=== PATIENT | male | born 1950 | race Caucasian/White ===

== ENCOUNTER 2019-04-03 15:37 | Emergency (ER) | payer MEDICARE, OTHER ==
--- NOTE | 2019-04-03 16:44 | ED Physician Documentation ---
PD HPI OPHTHO - Stated complaint Stated Complaint: LFT EYE INJURY - Chief complaint Chief Complaint: Heent - History obtained from History obtained from: Patient - History of Present Illness Timing - onset: Today Timing - details: Abrupt onset Location: Left Quality / character: Other (eye hurting and some blurred vision) Associated symptoms: FB sensation, Decreased vision. No: Double vision Contributing factors: Blunt trauma (he was riding tractor and a small tree/branch bent over and released and thwacked him in the left periorbital/orbital area. Has feeling of pain in eye and some blurred vision. Tried to call his Electronics Teacher and given appt for tomorrow morning. Encouraged to get checked in ER.), Wears glasses (just for reading, does not have them on usually.). No: Wears contacts Similar symptoms before: Has not had sx before Recently seen: Not recently seen Review of Systems Eyes: reports: Decreased vision Neurologic: denies: Focal weakness, Numbness, Altered mental status, Headache, LOC PD PAST MEDICAL HISTORY - Past Medical History Cardiovascular: None Respiratory: None GI: Ulcers : Kidney stones Musculoskeletal: Rheumatoid arthritis - Past Surgical History Past Surgical History: Yes Ortho: Rotator cuff repair - Present Medications Home Medications: Ambulatory Orders Medication Instructions Recorded Confirmed Omeprazole 20 mg PO DAILY 07/15/14 07/15/14 Ondansetron Odt [Zofran] 4 mg TL Q6H PRN #10 tablet 07/15/14 Oxycodone HCl/Acetaminophen 1 each PO Q4HR PRN #20 tablet 07/15/14 [Percocet 5-325 mg Tablet] Piroxicam 0 mg PO DAILY 07/15/14 07/15/14 Tamsulosin [Flomax] 0.4 mg PO DAILY #5 capsule 07/15/14 Erythromycin Base [Erythromycin 1 applic OP QID #3.5 oint...g. 04/03/19 Ophthalmic Ointment] Meloxicam [Mobic] 7.5 mg PO DAILY 04/03/19 04/03/19 - Allergies Allergies/Adverse Reactions: Allergies Allergy/AdvReac Type Severity Reaction Status Date / Time caffeine Allergy Unknown Verified 04/03/19 15:45 codeine Allergy Unknown Verified 04/03/19 15:45 - Social History Does the pt smoke?: No Smoking Status: Never smoker Does the pt drink ETOH?: Yes Does the pt have substance abuse?: No PD ED PE NORMAL - Vitals Vital signs reviewed: Yes - General General: Alert and oriented X 3, Well developed/nourished, Other (seems uncomfortable, and this is improved with Alcaine. ) - HEENT HEENT: PERRL, EOMI (without pain nor diplopia), Other (some bruising noted lower lid. No lacerations of skin. ) - Neck Neck: Supple, no meningeal sign, No bony TTP PD ED PE EXPANDED - Eyes Eyes: Eyelid erythema (with some mild bruising lower lid), Injected conj/sclera, Corneal abrasion (central), Fluorescein uptake, Anterior chambers clear, Normal fundi. No: Conj/sclera FB, Papilledema Results - Vitals Vitals: Vital Signs - 24 hr 04/03/19 04/03/19 15:42 17:34 Temperature 36.6 C Heart Rate 59 L 58 L Respiratory 14 13 Rate Blood Pressure 177/93 H 142/85 H O2 Saturation 99 96 Oxygen O2 Source Room air PD MEDICAL DECISION MAKING - ED course Complexity details: considered differential (corneal abrasion. Chambers without bleeding. No signs of globe rupture. ), d/w patient Departure - Departure Disposition: 01 Home, Self Care Clinical Impression: Corneal abrasion Qualifiers: Encounter type: initial encounter Laterality: left Qualified Code(s): S05.02XA - Injury of conjunctiva and corneal abrasion without foreign body, left eye, initial encounter Condition: Stable Record reviewed to determine appropriate education?: Yes Instructions: ED Eye Injury Corneal Abrasion Follow-Up: Todd Lagos MD [Primary Care Provider] - Prescriptions: Erythromycin Base [Erythromycin Ophthalmic Ointment] 1 applic OP QID #3.5 oint...g. Comments: Use the erythromycin ointment every 3-4 hours while awake. This will reduce the chance of infection. It also help soothe the abrasion and reduce symptoms. Tylenol or ibuprofen if needed for pain. Follow-up with your entry specialist tomorrow as planned. I just see the corneal abrasion without any other injury. Discharge Date/Time: 04/03/19 17:34
[2019-04-03] MEDS ORDERED: ERYTHROMYCIN OPHTH OINT 1 GM TUBE RIGHTEYE STA (17:19)
[2019-04-03 17:35] VITALS: BP 142/85
== END 2019-04-03 17:34 | disposition home or self-care (01) ==
LOC: ED 15:37
DX: S05.02XA Injury of conjunctiva and corneal abrasion without foreign body, left eye, initial encounter (principal); W22.8XXA Striking against or struck by other objects, initial encounter; Y93.89 Activity, other specified
CPT/HCPCS: 99283; J3490

== ENCOUNTER 2019-09-11 23:26 | Outpatient (CLI) | payer MEDICARE, OTHER | END 2019-09-11 23:27 | disposition critical access hospital (66) | LOC: EMS 23:26 | PROVIDERS: ATTEND Surgery | DX: R55 Syncope and collapse (principal); R42 Dizziness and giddiness; R41.0 Disorientation, unspecified | CPT/HCPCS: A0425; A0427 ==

== ENCOUNTER 2019-09-12 00:01 | Emergency (ER) | payer MEDICARE, OTHER ==
[2019-09-12] MEDS ORDERED: SODIUM CHLORIDE 0.9% 1,000 ML IV ONE (00:47)
[2019-09-12] MEDS ORDERED: DEXAMETHASONE 10 MG/ML VIAL IVP STA (00:47)
[2019-09-12] MEDS ORDERED: MAGNESIUM SULFATE 2 GRAM 2 GM/50 ML BAG IV ONE (00:48)
[2019-09-12] MEDS ORDERED: cefTRIAXone 1 GM in SODIUM CHLORIDE 0.9% MINIBAG 100 ML IV STA (00:48)
[2019-09-12 00:54] LABS: BASOPHILS # (AUTO) 0.1 10^3/uL (0.0-0.1); BASOPHILS % (AUTO) 0.7 %; EOSINOPHILS # (AUTO) 0.1 10^3/uL (0.0-0.7); EOSINOPHILS % (AUTO) 1.1 %; HGB - HEMOGLOBIN 11.1 g/dL (14.0-18.0); LYMPHOCYTES # (AUTO) 1.5 10^3/uL (1.5-3.5); LYMPHOCYTES % (AUTO) 20.3 %; MEAN CORPUSCULAR HEMOGLOBIN 24.7 pg (27.0-31.0); MEAN CORPUSCULAR VOLUME 79.6 fL (80.0-94.0); MEAN PLATELET VOLUME 10.8 fL (7.4-11.4); MONOCYTES # (AUTO) 0.5 10^3/uL (0.0-1.0); MONOCYTES % (AUTO) 6.3 %; NEUTROPHILS # (AUTO) 5.2 10^3/uL (1.5-6.6); NEUTROPHILS % (AUTO) 71.3 %; PLT - PLATELET COUNT 231 10^3/uL (130-450); RED CELL DISTRIBUTION WIDTH 14.1 % (12.0-15.0); WHITE BLOOD COUNT 7.3 x10^3/uL (4.8-10.8)
--- NOTE | 2019-09-12 00:55 | ED Physician Documentation ---
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 He has had some popping in his left ear and he has not had fever. 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 He has had dysrhythmia associated with pericarditis. Over the past 3 days he has had some improvement in his symptoms and today he went on a long walk with the dogs as usual and has felt fatigued. Tonight he had been laying in bed he went to the top of the stairs to ask his to call the dog and she heard a thud. He was on the landing with carpeted floor and he was not making sense. She states that he had repetitive amnesia and was diaphoretic. Review of Systems Constitutional: reports: Myalgias, Fatigue. denies: Fever Eyes: denies: Decreased vision Ears: reports: Ear pain, Tinnitus/ringing Nose: reports: Rhinorrhea / runny nose, Congestion Throat: reports: Sore throat Cardiac: denies: Chest pain / pressure, Palpitations Respiratory: reports: Cough. denies: Dyspnea GI: denies: Abdominal Pain, Nausea, Vomiting, Constipation, Diarrhea : denies: Dysuria, Frequency Skin: denies: Rash Musculoskeletal: denies: Neck pain, Back pain, Extremity pain Neurologic: reports: Syncope, Confused, LOC. denies: Generalized weakness, Focal weakness, Numbness, Headache PD PAST MEDICAL HISTORY - Past Medical History Cardiovascular: None Respiratory: None GI: Ulcers : Kidney stones Musculoskeletal: Rheumatoid arthritis - Past Surgical History Past Surgical History: Yes Ortho: Rotator cuff repair - Present Medications Home Medications: Ambulatory Orders Medication Instructions Recorded Confirmed Omeprazole 20 mg PO DAILY 07/15/14 07/15/14 Ondansetron Odt [Zofran] 4 mg TL Q6H PRN #10 tablet 07/15/14 Oxycodone HCl/Acetaminophen 1 each PO Q4HR PRN #20 tablet 07/15/14 [Percocet 5-325 mg Tablet] Piroxicam 0 mg PO DAILY 07/15/14 07/15/14 Tamsulosin [Flomax] 0.4 mg PO DAILY #5 capsule 07/15/14 Erythromycin Base [Erythromycin 1 applic OP QID #3.5 oint...g. 04/03/19 Ophthalmic Ointment] Meloxicam [Mobic] 7.5 mg PO DAILY 04/03/19 04/03/19 Amox/Clav 875/125 [Augmentin] 1 each PO Q12H #20 tablet 09/12/19 - Allergies Allergies/Adverse Reactions: Allergies Allergy/AdvReac Type Severity Reaction Status Date / Time caffeine Allergy Unknown Verified 09/12/19 00:09 codeine Allergy Unknown Verified 09/12/19 00:09 - Social History Does the pt smoke?: No Smoking Status: Never smoker Does the pt drink ETOH?: Yes Does the pt have substance abuse?: No PD ED PE NORMAL - Vitals Vital signs reviewed: Yes (hypertensive mild ) - General General: Alert and oriented X 3, No acute distress, Well developed/nourished - HEENT HEENT: Atraumatic, PERRL, EOMI, Other (right TM is midly inflamed and the left is inflamed in the attic with rounding of the umbo) - Neck Neck: Supple, no meningeal sign, No bony TTP - Cardiac Cardiac: RRR, No murmur - Respiratory Respiratory: No respiratory distress, Clear bilaterally - Abdomen Abdomen: Soft, Non tender - Back Back: No CVA TTP, No spinal TTP - Derm Derm: Normal color, Warm and dry, No rash - Extremities Extremities: No deformity, No edema - Neuro Neuro: Alert and oriented X 3, breaker oiler 2-12 intact, No motor deficit, No sensory deficit, Normal speech Eye Opening: To Voice Motor: Obeys Commands Verbal: Oriented GCS Score: 14 - Psych Psych: Normal mood, Normal affect Results - Vitals Vitals: Vital Signs - 24 hr 09/12/19 09/12/19 09/12/19 00:07 00:25 00:44 Temperature 36.8 C Heart Rate 79 75 78 Respiratory 16 15 Rate Blood Pressure 138/85 H 137/91 H O2 Saturation 95 100 100 09/12/19 09/12/19 09/12/19 01:59 02:24 02:35 Temperature Heart Rate 80 80 80 Respiratory 15 14 17 Rate Blood Pressure 124/76 125/77 125/83 H O2 Saturation 93 93 92 Oxygen O2 Source Room air - EKG (time done) 0004 Rate: Rate (enter#) (80) Rhythm: NSR Intervals: Prolonged ME, Prolonged QT Compare to prior EKG: Old EKG unavailable Computer interpretation: Agree with computer - Labs Labs: Laboratory Tests 09/12/19 09/12/19 09/12/19 00:15 00:15 00:15 WBC 7.3 RBC 4.50 L Hgb 11.1 L Hct 35.8 L MCV 79.6 L MCH 24.7 L MCHC 31.0 L RDW 14.1 Plt Count 231 MPV 10.8 Neut # (Auto) 5.2 Lymph # (Auto) 1.5 [place] # (Auto) 0.5 Eos # (Auto) 0.1 Baso # (Auto) 0.1 Absolute Nucleated RBC 0.00 Nucleated RBC % 0.0 Sodium 142 Potassium 3.7 Chloride 104 Carbon Dioxide 24 Anion Gap 14.0 H BUN 32 H Creatinine 0.9 Estimated GFR (MDRD) 84 L Glucose 117 H Calcium 8.9 Magnesium 2.0 Total Bilirubin 0.6 AST 19 ALT 11 Alkaline Phosphatase 94 Troponin I High Sens 4.7 Total Protein 7.0 Albumin 4.1 Globulin 2.9 Albumin/Globulin Ratio 1.4 Lipase 30 Urine Color Urine Clarity Urine pH Ur Specific [place] Urine Protein Urine Glucose (UA) Urine Ketones Urine Occult Blood Urine Nitrite Urine Bilirubin Urine Urobilinogen Ur Leukocyte Esterase Ur Microscopic Review Urine Culture Comments 09/12/19 01:05 WBC RBC Hgb Hct MCV MCH MCHC RDW Plt Count MPV Neut # (Auto) Lymph # (Auto) [place] # (Auto) Eos # (Auto) Baso # (Auto) Absolute Nucleated RBC Nucleated RBC % Sodium Potassium Chloride Carbon Dioxide Anion Gap BUN Creatinine Estimated GFR (MDRD) Glucose Calcium Magnesium Total Bilirubin AST ALT Alkaline Phosphatase Troponin I High Sens Total Protein Albumin Globulin Albumin/Globulin Ratio Lipase Urine Color YELLOW Urine Clarity CLEAR Urine pH 6.5 Ur Specific [place] 1.015 Urine Protein NEGATIVE Urine Glucose (UA) NEGATIVE Urine Ketones 15 H Urine Occult Blood NEGATIVE Urine Nitrite NEGATIVE Urine Bilirubin NEGATIVE Urine Urobilinogen 0.2 (NORMAL) Ur Leukocyte Esterase NEGATIVE Ur Microscopic Review NOT INDICATED Urine Culture Comments NOT INDICATED - Rads (name of study) chest Radiology: Prelim report reviewed (Impression: 1. No acute abnormality seen in the chest.), EMP read indepedently, See rad report head Radiology: Prelim report reviewed (Impression: No intracranial hemorrhage, skull fracture, or other acute intracranial abnormality.), EMP read indepedently, See rad report Procedures - IVC sono (time) 0050 Bedside IVC sono: IVC measures (cm) (1.12), IVC collapsed c insp (cm) (complete), Dehydration (est 1 liter deficit) PD MEDICAL DECISION MAKING - ED course Complexity details: reviewed old records, reviewed results, re-evaluated patient, considered differential, d/w patient, d/w family ED course: 68-year-old male with a history of Shkuri's syndrome has an inflammatory condition with otitis media and tonight he has had a syncopal episode. On evaluation he is found to be mildly dehydrated on interrogation the inferior vena cava and his inflammatory condition is treated with dexamethasone and Rocephin and the patient feels improved at discharge. His dehydration is addressed with a liter of saline and he is administered IV magnesium. The remai nder of his work-up is otherwise remarkable only for a isolated elevation of his BUN which is present on his prior blood work as well. He does not give any history of GI bleeding denies any dark or tarry stools states that he does have regular blood loss from hemorrhoids at least each time he wipes. He has been into see a specialist and had some improvement with use of hydrocortisone. Patient has had one other syncopal episode under similar conditions where he was working all day and was dehydrated. Departure - Departure Disposition: 01 Home, Self Care Clinical Impression: Syncope and collapse, Dehydration Otitis media Qualifiers: Otitis media type: suppurative Chronicity: acute Laterality: left Recurrence: non-recurrent Spontaneous tympanic membrane rupture: without spontaneous rupture Qualified Code(s): H66.002 - Acute suppurative otitis media without spontaneous rupture of ear drum, left ear Condition: Stable Instructions: ED Otitis Media Acute Adult, ED Syncope Vasovagal, ED Dehydration Follow-Up: Jhonny Varner MD [Primary Care Provider] - Prescriptions: Amox/Clav 875/125 [Augmentin] 1 each PO Q12H #20 tablet
[2019-09-12 01:05] LABS: ALBUMIN 4.1 g/dL (3.2-5.5); ALBUMIN/GLOBULIN RATIO 1.4 (1.0-2.2); BILIRUBIN,TOTAL 0.6 mg/dL (0.2-1.0); CALCIUM 8.9 mg/dL (8.5-10.3); CREATININE 0.9 mg/dL (0.6-1.2)
[2019-09-12 01:12] LABS: BILIRUBIN,URINE NEGATIVE (NEGATIVE); CLARITY,URINE CLEAR (CLEAR); GLUCOSE, URINE (UA) NEGATIVE (NEGATIVE); KETONES,URINE (UA) 15 mg/dL (NEGATIVE); LEUKOCYTE ESTERASE, URINE NEGATIVE (NEGATIVE); NITRITE,URINE NEGATIVE (NEGATIVE); OCCULT BLOOD,URINE NEGATIVE (NEGATIVE); PH,URINE 6.5 PH (5.0-7.5); PROTEIN,URINE NEGATIVE (NEGATIVE); UROBILINOGEN,URINE 0.2 (NORMAL) E.U./dL (NORMAL)
--- NOTE | 2019-09-12 02:01 | XRAY Report ---
Reason: chest pain Procedure Date: 09/12/2019 Accession Number: [id number] / [id number] Procedure: XR - Chest 1 View X-Ray CPT Code: 19532 Final Report FULL RESULT: EXAM: CHEST RADIOGRAPHY EXAM DATE: 09/12/2019 01:24 AM. CLINICAL HISTORY: Chest pain. COMPARISON: None. TECHNIQUE: 1 view. FINDINGS: Lungs/Pleura: No alveolar consolidation or pleural effusion seen. No pneumothorax. Mediastinum: Within exam limitations, the cardiomediastinal contour is normal. Other: Old healed fracture of the right clavicle. Postoperative changes in the proximal right humerus. IMPRESSION: 1. No acute abnormality seen in the chest. [facility]
--- NOTE | 2019-09-12 02:09 | CT Report ---
Reason: fall altered LOC Procedure Date: 09/12/2019 Accession Number: [id number] / [id number] Procedure: CT - HEAD WO CPT Code: Final Report FULL RESULT: EXAM: CT HEAD EXAM DATE: 09/12/2019 01:26 AM. CLINICAL HISTORY: Fall altered LOC. COMPARISON: None. TECHNIQUE: Multiaxial CT images were obtained from the foramen magnum to the vertex. Reformats: Sagittal and coronal. IV contrast: None. In accordance with CT protocol optimization, one or more of the following dose reduction techniques were utilized for this exam: automated exposure control, adjustment of mA and/or KV based on patient size, or use of iterative reconstructive technique. FINDINGS: Parenchyma: No intraparenchymal hemorrhage. No evidence of mass, midline shift, or CT findings of infarction. Hurtado-white differentiation is distinct. Extraaxial Spaces: Normal for age. No subdural or epidural collections identified. Ventricles: Normal in size and position. Sinuses and Orbits: Gely scattered mild mucosal thickening in paranasal sinuses. No significant opacification or air-fluid levels. Visualized orbits are unremarkable. Visualized mastoid air cells are clear. Bones: No evidence of fracture or calvarial defect. Other: None. IMPRESSION: No intracranial hemorrhage, skull fracture, or other acute intracranial abnormality. [facility]
[2019-09-12 03:05] VITALS: BP 131/82
== END 2019-09-12 03:10 | disposition home or self-care (01) ==
LOC: EDUNIT# → ED 00:01
DX: R55 Syncope and collapse (principal); E86.0 Dehydration; H66.002 Acute suppurative otitis media without spontaneous rupture of ear drum, left ear
CPT/HCPCS: 36415; 70450; 71045; 80053; 81001; 81003; 83690; 83735; 84484; 85025; 87086; 93005; 96365; 96366; 96368; 96375; 99284